=== PATIENT | male | born 1960 | race Caucasian/White ===

== ENCOUNTER 2017-07-15 19:19 | Emergency (ER) | payer BC, OTHER ==
[2017-07-15] MEDS ORDERED: Amoxicillin/Clavulanate K 875-125 MG Tab ONE (20:45)
--- NOTE | 2017-07-15 21:58 | EDM.PDOC ---
ED HPI GENERAL MEDICAL PROBLEM - General Chief Complaint: General Stated Complaint: Fell Time Seen by Provider: 07/15/17 19:20 Source of Information: Reports: Patient History Limitations: Reports: No Limitations - History of Present Illness INITIAL COMMENTS - FREE TEXT/NARRATIVE: Pt was walking in the wood and he got hit a a branch of the tree straight in his face and sustained a laceration of the right upper lip just 30 minutes ago. the lip has been bleeding. No other injuries. no tooth pain. No loose tooth. no bleeding form the nose. Pt claims his last tetanus was 1 year ago. Onset: Today Onset Date: 07/15/17 Onset Time: 18:30 Severity: Mild Context: Reports: Trauma Associated Symptoms: Denies: Confusion, Chest Pain, Cough, Fever/Chills, Headaches, Nausea/Vomiting, Rash, Seizure, Syncope, Weakness right upper lip Pain Score (Numeric/FACES): 4 - Related Data Allergies Allergy/AdvReac Type Severity Reaction Status Date / Time codeine Allergy Cannot Verified 07/15/17 19:45 Remember Past Medical History - Past Health History Medical/Surgical History: Denies Medical/Surgical History HEENT History: Reports: Other (See Below) Other HEENT History: Laceration from fall in [place] while face probable hit on stick Cardiovascular History: Reports: Bypass, High Cholesterol, Hypertension, [place], Stents Musculoskeletal History: Reports: Arthritis - Past Surgical History Cardiovascular Surgical History: Reports: Coronary Artery Bypass, Coronary Artery Stent Social & Family History - Tobacco Use Smoking Status *Q: Never Smoker Second Hand Smoke Exposure: No - Caffeine Use Caffeine Use: Reports: Coffee, Soda - Alcohol Use Days Per Week of Alcohol Use: 1 Number of Drinks Per Day: 2 Total Drinks Per Week: 2 - Recreational Drug Use Recreational Drug Use: No ED ROS GENERAL - Review of Systems Review Of Systems: See Below Constitutional: Denies: Fever, Chills HEENT: Denies: Ear Pain, Eye Pain, Rhinitis, Throat Pain, Throat Swelling, Vision Change Respiratory: Denies: Shortness of Breath, Wheezing, Pleuritic Chest Pain, Cough , Sputum Cardiovascular: Denies: Chest Pain, Lightheadedness GI/Abdominal: Denies: Abdominal Pain, Nausea, Vomiting : Denies: Urgency, Urinary Retention Skin: Reports: Bruising, Erythema. Denies: Pruritis, Rash ED EXAM, GENERAL - Physical Exam Exam: See Below Exam Limited By: No Limitations General Appearance: Alert, WD/WN, No Apparent Distress Eye Exam: Bilateral Eye: EOMI, PERRL Ears: Normal External Exam, Normal Canal, Hearing Grossly Normal, Normal TMs Ear Exam: Bilateral Ear: Auricle Normal, Canal Normal, TM normal Nose: Normal Inspection, Normal Mucosa, No Blood Throat/Mouth: Normal Teeth, Normal Gums, Normal Oropharynx, Other (There is a laceration of the right upper lip which is about 2 cm in length, the laceration cuts throguh the entire length of the lip all the way into the mucosa of the inner surface of the lip. The orbicularis osiel msucle is completely severed and there is a large gapping retracted wound, which is actively bleeding.) Head: Atraumatic, Normocephalic Neck: Normal Inspection, Supple, Non-Tender, Full Range of Motion Respiratory/Chest: No Respiratory Distress, Lungs Clear, Normal Breath Sounds, No Accessory Muscle Use, Chest Non-Tender Cardiovascular: Normal Peripheral Pulses, Regular Rate, Rhythm, No Edema, No Gallop, No JVD, No Murmur, No Rub ED GENERAL MEDICAL PROCEDURES - Laceration/Wound Repair Face Lac/wound length in cm: 2 (rigth upper lip) Appearance: Subcutaneous, Muscle, Other (mucosa) Distal NVT: Neuro & Vascular Intact Anesthetic Type: Local Local Anesthesia - Lidocaine (Xylocaine): 1% Plain Local Anesthetic Volume: 2cc Skin Prep: Chlorhexidine (Hibiciens) Exploration/Debridement/Repair: Wound Explored Closed with: Sutures Suture Size: other (5-O) # of Sutures: 5 Suture Type: Interrupted, Other (ethilon) Suture Size: 3-0 # of Sutures: 2 (figure of 8 sutres applied around the cut edges of the muscles ) Repaired with: Vicryl Sterile Dressing Applied: Provider Tetanus Status Addressed: Yes Complications: No Progress/Comments: also the mucosa of the lip closed using 3-O vicryl 2 interrupted sutres. Course - Vital Signs Text/Narrative:: Pt reassured. He has a complete laceration extending form the skin, through the orbicular osiel muscle into the mucosa. the wound was cleaned and closed in routine fashion in layers under aseptic precautions. Simple dressing done. Pt advised daily simple dressing.Do not wet the wound for 48 hrs. Keep the wound covered when outdoor. Rinse the mouth with lysterine gargles every time he eats. As this is compete laceration and extends into the oral cavity, have empirically covered him with Augmentin 875mg BID for 10 days. avoid stretching the lip or sip form the straw. Suture removal on day 10. Last Recorded V/S: Last Vital Signs Temp Pulse 98 07/15/17 19:38 Resp 16 07/15/17 19:38 BP 141/94 H 07/15/17 19:38 Pulse Ox 98 07/15/17 19:38 Departure - Departure Time of Disposition: 21:00 Disposition: Home, Self-Care 01 Condition: Fair Clinical Impression: Lip laceration - Discharge Information Instructions: Facial Laceration, Laceration Care, Adult Referrals: PCP,None [Primary Care Provider] - Forms: ED Department Discharge Additional Instructions: Have sutures removed in 10 days and be very careful with any mouth movements. - Problem List & Annotations (1) Lip laceration SNOMED Code(s): 963696210 Code(s): S01.511A - LACERATION WITHOUT FOREIGN BODY OF LIP, INITIAL ENCOUNTER Status: Acute Current Visit: Yes - Problem List Review Problem List Initiated/Reviewed/Updated: Yes - Assessment/Plan Assessment:: deep lip laceration Plan: Pt reassured. He has a complete laceration extending form the skin, through the orbicular osiel muscle into the mucosa. the wound was cleaned and closed in routine fashion in layers under aseptic precautions. Simple dressing done. Pt advised daily simple dressing.Do not wet the wound for 48 hrs. Keep the wound covered when outdoor. Rinse the mouth with lysterine gargles every time he eats. As this is compete laceration and extends into the oral cavity, have empirically covered him with Augmentin 875mg BID for 10 days. avoid stretching the lip or sip form the straw. Suture removal on day 10.
== END 2017-07-15 21:00 | disposition home or self-care (01) ==
LOC: LB.ED 19:19
DX: S01.511A Laceration without foreign body of lip, initial encounter (principal); Z88.5 Allergy status to narcotic agent; E78.00 Pure hypercholesterolemia, unspecified; I10 Essential (primary) hypertension; W22.8XXA Striking against or struck by other objects, initial encounter
CPT/HCPCS: 12011; 99282; A9270; 12051; 99283